=== PATIENT | male | born 1995 | race Caucasian/White ===

== ENCOUNTER 2017-06-25 13:08 | Inpatient (IN) | payer OTHER ==
[~2017-06-25] VITALS: Ht 175.3 cm; Wt 55.5 kg
[2017-06-25 13:29] LABS: BASOPHIL (%) 0.7 % (0-1); BASOPHIL COUNT 0.1 K/uL (0-0.1); EOSINOPHIL (%) 2.7 % (0-5); EOSINOPHIL COUNT 0.3 K/uL (0-0.3); HEMATOCRIT 52.5 % (38.0-50.0); HEMOGLOBIN 18.4 G/DL (12.5-16.6); IMMATURE GRANULOCYTE (%) 0.8 % (0.0-0.7); LYMPHOCYTE (%) 28.7 % (15-42); LYMPHOCYTE COUNT 2.8 K/uL (1.0-2.8); MCH 30.8 PG (29.0-34.0); MCV 87.8 FL (86-99); MONOCYTE (%) 4.9 % (3-12); MONOCYTE COUNT 0.5 K/uL (0-0.8); NEUTROPHIL (%) 62.2 % (45-76); PLATELET COUNT 247 K/uL (156-360); RBC DIS.WIDTH-SD 38.3 % (39-53); RED BLOOD COUNT 5.98 M/uL (4.00-5.50); WHITE BLOOD COUNT 9.6 K/uL (4.1-10.2)
[2017-06-25 13:36] LABS: AMYLASE 63 IU/L (1-118); CHLORIDE 105 mEq/L (99-109); POTASSIUM 4.2 mEq/L (3.7-5.4); SODIUM 140 mEq/L (136-147)
[2017-06-25 13:38] LABS: GLUCOSE 106 mg/dL (70-99)
[2017-06-25 13:41] LABS: SERUM ETHYL ALCOHOL < 10 mg/dL
[2017-06-25 13:42] LABS: GFR ESTIMATE (CALCULATED) > 59 mL/min/ (58.99-99999)
[2017-06-25 13:43] LABS: UREA NITROGEN (BUN) 13 mg/dL (9-23)
[2017-06-25 13:45] LABS: LIPASE 9 U/L (1.0-51.0)
[2017-06-25 15:19] LABS: APPEARANCE CLEAR ((CLEAR)); BILIRUBIN NEGATIVE; BLOOD NEGATIVE; COLOR STRAW ((YELLOW)); GLUCOSE (STRIP) NEGATIVE; KETONES NEGATIVE; LEUKOCYTES NEGATIVE; NITRITE NEGATIVE; PROTEIN (STRIP) NEGATIVE; SPECIFIC GRAVITY 1.032 (1.000-1.030); UCUL ADDED? NO; UROBILINOGEN 0.2 MG/DL (0.2-1.0)
[2017-06-25 15:29] LABS: AMPHETAMINE NEGATIVE (500 ng/mL); BARBITURATES NEGATIVE (200 ng/mL); BENZODIAZEPINES NEGATIVE (150 ng/mL); BUPRENORPHINE NEGATIVE (10 ng/mL); COCAINE NEGATIVE (150 ng/mL); METHADONE NEGATIVE (200 ng/mL); METHAMPHETAMINE NEGATIVE (500 ng/mL); OPIATES (MORPHINE) NEGATIVE (100 ng/mL); OXYCODONE PRESUMPTIVE POSITIVE (100 ng/mL); PHENCYCLIDINE NEGATIVE (25 ng/mL); PROPOXYPHENE NEGATIVE (300 ng/mL); THC CANNABINOIDS PRESUMPTIVE POSITIVE (50 ng/mL); TRICYCLIC ANTIDEPRESSANTS NEGATIVE (300 ng/mL)
[2017-06-25 21:29] VITALS: BP 142/78
[2017-06-25 21:38] VITALS: BP 142/78
[2017-06-25 22:00] VITALS: BP 138/72
[2017-06-25 23:00] VITALS: BP 133/67
[2017-06-26] VITALS (17 sets, daily range): BP systolic 97–141; BP diastolic 46–83
[2017-06-26 05:38] LABS: HEMATOCRIT 45.2 % (38.0-50.0); MCH 29.9 PG (29.0-34.0); MCHC 33.6 G/DL (30.0-36.0); MCV 88.8 FL (86-99); PLATELET COUNT 187 K/uL (156-360); RBC DIS.WIDTH-CV 12.1 % (11.8-14.6); RBC DIS.WIDTH-SD 39.8 % (39-53); RED BLOOD COUNT 5.09 M/uL (4.00-5.50)
[2017-06-26 05:40] LABS: HEMOGLOBIN 15.2 G/DL (12.5-16.6)
[2017-06-26 06:05] LABS: ALBUMIN 3.7 G/DL (3.2-4.8); ALKALINE PHOSPHATASE 65 IU/L (3-129); ALT (GPT) 8 IU/L (3-49); AST (GOT) 13 IU/L (2-34); CHLORIDE 106 MEQ/L (99-109); GFR ESTIMATE (CALCULATED) > 59 mL/min/ (58.99-99999); GLUCOSE 96 mg/dL (70-99); POTASSIUM 4.3 MEQ/L (3.7-5.4); SODIUM 139 MEQ/L (136-147); TOTAL BILIRUBIN 0.6 MG/DL (0.0-1.0); TOTAL PROTEIN 6.1 G/DL (6.4-8.3); UREA NITROGEN (BUN) 10 mg/dL (9-23)
[2017-06-26 06:35] LABS: THYROTROPIN (TSH) 1.6 MIU/L (0.4-5.5)
[2017-06-27 03:48] VITALS: BP 109/68
[2017-06-27 07:34] VITALS: BP 132/63
[2017-06-27 11:13] VITALS: BP 148/73
[2017-06-27 15:39] VITALS: BP 129/60
[2017-06-27 23:55] VITALS: BP 126/72
[2017-06-28 04:29] VITALS: BP 124/80
[2017-06-28 08:01] VITALS: BP 125/63
[2017-06-28 09:20] LABS: HEMATOCRIT 48.4 % (38.0-50.0); HEMOGLOBIN 16.4 G/DL (12.5-16.6); MCH 29.8 PG (29.0-34.0); MCHC 33.9 G/DL (30.0-36.0); MCV 87.8 FL (86-99); PLATELET COUNT 214 K/uL (156-360); RBC DIS.WIDTH-SD 38.9 % (39-53); RED BLOOD COUNT 5.51 M/uL (4.00-5.50); WHITE BLOOD COUNT 8.1 K/uL (4.1-10.2)
[2017-06-28 09:37] LABS: CHLORIDE 109 MEQ/L (99-109); POTASSIUM 4.8 MEQ/L (3.7-5.4); SODIUM 144 MEQ/L (136-147)
[2017-06-28 09:43] LABS: CREATININE 0.9 MG/DL (0.6-1.3); GFR ESTIMATE (CALCULATED) > 59 mL/min/ (58.99-99999); GLUCOSE 94 mg/dL (70-99); UREA NITROGEN (BUN) 17 mg/dL (9-23)
[2017-06-28 11:48] VITALS: BP 161/72
[2017-06-28 19:58] VITALS: BP 123/60
[2017-06-28 23:44] VITALS: BP 118/57
[2017-06-29 04:02] VITALS: BP 127/58
[2017-06-29 07:39] VITALS: BP 116/57
[2017-06-29] MEDS ORDERED: BACLOFEN10 MG PO (10:42)
[2017-06-29] MEDS ORDERED: PERCOCET 5/31 TABLET PO (10:43)
== END 2017-06-29 12:18 | disposition home or self-care (01) | DRG 958 ==
LOC: TRA 13:08 → EDOF 16:55 → 4WEST 16:55 → 3EAST 16:55 → ENRESERV 16:58 → 4WEST 21:22 → ENRESERV 06-26 11:24 → 3EAST 06-26 16:36
PROVIDERS: Emergency Medicine; Physician Assistant Medical; Surgery
DX: S06.5X0A Traumatic subdural hemorrhage without loss of consciousness, initial encounter (principal); S14.0XXA Concussion and edema of cervical spinal cord, initial encounter; S13.151A Dislocation of C4/C5 cervical vertebrae, initial encounter; Z68.1 Body mass index [BMI] 19.9 or less, adult; V43.62XA Car passenger injured in collision with other type car in traffic accident, initial encounter; R29.5 Transient paralysis; M50.221 Other cervical disc displacement at C4-C5 level; F17.210 Nicotine dependence, cigarettes, uncomplicated; F12.10 Cannabis abuse, uncomplicated; Y92.411 Interstate highway as the place of occurrence of the external cause; Z56.0 Unemployment, unspecified
CPT/HCPCS: 70450; 71260; 72020; 72125; 72141; 74177; 76000; 80048; 80053; 81003; 82150; 83690; 84439; 84443; 84999; 85025; 85027; 86376; 86800 90; 86850; 86900; 86901; 87641; 99281; 99285; C1713; C1821; G0480; J0131; J0690; J1100; J1170; J2250; J2270; J2405; J2710; J3010; J3480; J7120